=== PATIENT | female | born 1950 | race Caucasian/White ===

== ENCOUNTER 2017-01-29 19:56 | Observation (INO) | payer BC, MEDICARE ==
[~2017-01-29] VITALS: Ht 162.6 cm; Wt 67.9 kg
--- NOTE | ~2017-01-29 | DS ---
PATIENT'S NAME: GHAZAL CÁRDENAS [facility] AGE: 66 Y [address] ROOM: [address] [place], [place] [address] [place] [facility] [place] DATE: 01/29/2017 Discharge Summary DISCHARGE DATE: 02/01/2017 FAMILY PHYSICIAN: Physician, Unknown ATTENDING PHYSICIAN: Aliyah Dominguez [facility] COURSE: This is a 66-year-old female with a past medical history of diabetes type 2; history of seizures; hallucinations; she has a history of chronic pain syndrome with a pain pump, however, does not know what kind of medication they use for the pain pump; and she has a history of peripheral vascular disease, who is admitted for acute psychotic disorder in which the patient was actively hallucinating and was very aggressive towards her . Per her , since this has been ongoing for the past month or so, the patient was admitted and Psychiatry was consulted and Neurology was also consulted. From an internal medical standpoint, we have done our full workup. Her TSH and free T4 was within normal limits. Her CT head is also negative. We are unable to do an MRI because we do not know what pump she actually has. Urine culture and blood culture is negative. Chest x-ray showed some questionable infiltrate versus atelectasis, however, upon reviewing the chest x-ray myself, this appears to be more atelectasis. She has no symptoms of shortness of breath. She has no fever, no leukocytosis, and procal is negative. She has mild hypercarbia on ABG, but at that time the patient was very drowsy and she was able to be weaned off oxygen when she was awake. We also obtained ammonia level and that was 19. We did a urine drug screen and that was also negative. The only positive was opiate. At the time of discharge, the patient was hemodynamically stable. She was still somewhat forgetful. She is drowsy, but she wakes up. Per Neurology recommendations, the patient will be discharged on increased Lamictal. She will be upped from 100 mg b.i.d. to 150 mg at night and 100 mg in the morning. Psychiatry had recommended to start her on Zyprexa 2.5 mg b.i.d. I will give her a limited dosage just so that she can go back and prevent further psychosis with aggressive behavior episode, so that she can follow up with her PCP, her psychiatrist, and also her pain management physician. She needs to follow up with her psychiatrist, her pain management physician, and PCP JAMIL when she gets to [place]. She is to follow up with them on Thursday or Thursday for medication adjustment. DISCHARGE PHYSICAL EXAMINATION: VITAL SIGNS: She is afebrile, her heart rate is in the 60s, her respiratory rate is in the 16s, her blood pressure is at 120s/50s. She is saturating 96% on room air. GENERAL: She is awake and alert this morning. She is in no acute distress. LUNGS: Sounds are clear. No crackles, no wheezing present. HEART: Sounds are regular rate and rhythm. No rubs, no murmurs present. ABDOMEN: Nontender. No guarding. No rigidity. No organomegaly. Bowel PATIENT'S NAME: GHAZAL CÁRDENAS [facility] AGE: 66 Y [address] ROOM: [place] [address] [place]: [facility] [place] DATE: 01/29/2017 Discharge Summary DISCHARGE DATE: 02/01/2017 FAMILY PHYSICIAN: Physician, Unknown ATTENDING PHYSICIAN: Aliyah Dominguez sounds are normal. EXTREMITIES: No pedal edema grossly. NEUROLOGIC: She is neurologically grossly normal. PSYCHIATRIC NICHOLE: I am unable to determine. I feel like she is unable to make her own decisions. DISCHARGE MEDICATIONS: She will be discharged back on her home doses of medication. The only changes will be her Lamictal instead of 100 mg b.i.d., it will be 100 mg in the morning and 150 mg at night and also she will be added on Zyprexa 2.5 mg b.i.d. for 15 pills, so that she can follow up with the psychiatrist as soon as possible. MD SHANTE KWOK/rupali /[id number] d: 02/02/17 0343 t: 03/20/17 0919, DISCHARGE SUMMARY
--- NOTE | ~2017-01-29 | CON ---
PATIENT'S NAME: GHAZAL CÁRDENAS [facility] AGE: 66 Y [address] ROOM: [address] [place], [place] [address] LOCATION: [facility] [place] ADMIT DATE: 01/29/2017 Consultation DISCHARGE DATE: FAMILY PHYSICIAN: PHYSICIAN, UNKNOWN ATTENDING PHYSICIAN: Aliyah FERREIRA DATE OF CONSULTATION: 02/01/2017 TIME: 9:40 a.m. CHIEF COMPLAINT: Altered mental status. HISTORY OF PRESENT ILLNESS: This is a 66-year-old female who presents with a past medical history of diabetes mellitus type 2, CAD, and recent history of hallucinations who presents to our emergency room with confusion. The patient was here for a with her because of a in the family, and she appeared very confused. They went to a gas station, and the patient refused to get in the car and thought her was the [place]. She was confused and agitated. They did call EMS, and the patient was brought to our emergency department. She was placed on soft restraints for a CT of her head and given ketamine to accomplish the CT. The patient continued to hallucinate, but was no longer agitated. She still stated the Devil is telling her to do stuff. She did see the Devil in her hospital room also. She states she even saw the Devil before she came to [place] and [place]. The states, for the past 2 months or so, she has had a history of confusion, and she cannot remember events and sometimes mistakes someone for someone else. She has a history of severe depression and sees Psychiatry in [place]. It is unknown if she has been taking her medications faithfully. The patient denies wanting to harm herself or others. She is alert and oriented x3; however, she still has hallucinations. She denies hearing voices. She denies any headache, fever, chills, productive cough, chest pain, shortness of breath, abdominal pain, nausea, or vomiting. She denies any changes in medications recently. PAST MEDICAL HISTORY: 1. Diabetes mellitus, type 2. 2. CAD. 3. Seizure disorder. 4. Peripheral vascular disease. 5. History of colitis. 6. History of back pain with pain pump. They do not know what kind of medication the pain pump uses. PATIENT'S NAME: GHAZAL CÁRDENAS [facility] AGE: 66 Y [address] ROOM: [id number] [place], [place] [address] LOCATION: [facility] [place] ADMIT DATE: 01/29/2017 Consultation DISCHARGE DATE: FAMILY PHYSICIAN: PHYSICIAN, UNKNOWN ATTENDING PHYSICIAN: Aliyah FERREIRA PAST SURGICAL HISTORY: 1. Total knee replacement. 2. Total hip replacement. 3. Cholecystectomy. 4. Appendectomy. 5. Multiple back surgeries. 6. Pain pump placement. FAMILY HISTORY: Her father of coronary artery disease at age 54. Her mother had a history of diabetes, type 2. SOCIAL HISTORY: Remote smoking history, she stopped 4 years ago and denies any drinking. MEDICATIONS: On the chart and reviewed by me. Of course, we noted that the patient is taking Lamictal; however, we are unsure if this is for seizures or for mood control. The patient is also on Lyrica which may have an anti-seizure effect also, although it is scheduled p.r.n. REVIEW OF SYSTEMS: All systems have been reviewed are negative except for those mentioned in the HPI. PHYSICAL EXAMINATION: VITALS SIGNS: She is afebrile. Blood pressure is 138/72, heart rate of 84, respirations 16, and she is saturating 95% on room air. GENERAL APPEARANCE: The patient is sleepy, but does arouse. She appears in no acute distress. HEENT: Head is normocephalic and atraumatic. Eyes: Extraocular muscles are intact. Pupils are equal and reactive to light and accommodation. NECK: No nuchal rigidity noted. HEART: Regular rate and rhythm. No murmurs, rubs, or gallops. ABDOMEN: Soft, nontender, and nondistended. She does have a right-sided pain pump in place. NEUROLOGIC: She is alert and oriented x3. She is a very poor historian. When questioned about her issues about getting in the car with her , she stated her was a different person. The patient feels like she is at baseline; however, she is still having delusional thoughts. She is still communicating with the Devil. Her affect is somewhat flat. LABORATORY DATA: The drug screen was positive for opiates. Of note, the patient does take Percocet at home. TSH of 2.5. CRP is 0.99. Lactate of 2.7. Her CT of head PATIENT'S NAME: GHAZAL CÁRDENAS [facility] AGE: 66 Y [address] ROOM: [id number] [place] [address] LOCATION: [facility] [place] ADMIT DATE: 01/29/2017 Consultation DISCHARGE DATE: FAMILY PHYSICIAN: PHYSICIAN, UNKNOWN ATTENDING PHYSICIAN: Aliyah FERREIRA shows no acute processes. ASSESSMENT AND PLAN: Delirium. Unable to tell if this is related to her depression or not. Her behavior certainly could have been an unusual presentation of seizure also. For that matter, we will increase her evening Lamictal to 150 mg p.o. The best plan of care for this patient would be to get her back to her physicians who know her very complex medical background after she has been stabilized. There are many unknowns such as what is in her pain pump and has she had any changes in medications. Agree with Psychiatry's recommendation to start the Seroquel. We would like to thank you for the opportunity to participate in this patient's care. If you have any questions, please do not hesitate to notify us. LORENZA BEDOLLA APRN FOR JACQUI OLMEDO MD PP/humbertol /[id number] d: 02/01/17 1208 t: 02/03/17 1841, CONSULTATION REPORT
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
--- NOTE | ~2017-01-29 | HP ---
PATIENT'S NAME: GHAZAL CÁRDENAS [facility] AGE: 66 Y [address] ROOM: [address] [place], [place] [address] LOCATION: [facility] [place] ADMIT DATE: 01/29/2017 History & Physical DISCHARGE DATE: FAMILY PHYSICIAN: PHYSICIAN, UNKNOWN ATTENDING PHYSICIAN: Aliyah FERREIRA DATE OF SERVICE: CHIEF COMPLAINT: Altered mental status. HISTORY OF PRESENT ILLNESS: The patient is a 66-year-old female with past medical history of diabetes mellitus type 2, CAD, and recent history of seizure and hallucination, who presents here with acute confusion. The patient is originally from [facility]. The patient came to visit her mother because there was a in the family. The patient came with her , however, the patient was noted to be confused today. According to , they went to a gas station and the patient refused to get into the car and thought her was the rexl and was noted to be confused and agitated. The patient was brought into our emergency department for further investigation. The patient was initially noted to be agitated and confused. The patient was initially placed in with soft restraint and had a CT of head that was negative. The patient received ketamine for her CT head. The patient currently is still hallucinating, but, however no signs of agitation. The patient reports that she sees the devil and eugene is telling her to do stuff that she does not want to do. She currently denies seeing the devil in the room and last time she saw the devil was before she came in. She reports that she have seen the devil before even when she was in [place]. According to , he reports that for the past 2 months or so, the patient has these episodes of confusion and not able to remember events and sometimes taken for someone else. The patient has a history of severe depression and sees Psychiatry in [place]. He reports that she has not been taking her psychiatric for the past few months. also reports that she has been taking her medications lately. The patient currently denies of harming herself or others. She is alert and oriented x3. However, she still has hallucinations. She currently denies hearing voices. She denies any headache, fever, chills, productive cough, chest pain, shortness of breath, abdominal pain, nausea, vomiting. PAST MEDICAL HISTORY: 1. Diabetes mellitus, type 2. 2. CAD with no intervention. 3. Seizure disorder. 4. Peripheral vascular disease. PATIENT'S NAME: GHAZAL CÁRDENAS [facility] AGE: 66 Y [address] ROOM: [place] [address] LOCATION: [facility] [place] ADMIT DATE: 01/29/2017 History & Physical DISCHARGE DATE: FAMILY PHYSICIAN: PHYSICIAN, UNKNOWN ATTENDING PHYSICIAN: Aliyah FERREIRA 5. History of colitis. 6. History of back pain with pain pump. and the patient does not know what kind of medication that use for pain pump. PAST SURGICAL HISTORY: 1. Total knee replacement. 2. Total hip replacement. 3. Cholecystectomy. 4. Appendectomy. 5. Multiple back surgery. 6. Pain pump placement. FAMILY HISTORY: Father of coronary artery disease at age 54. Mother has history of diabetes mellitus type 2. SOCIAL HISTORY: History of smoking. She stopped four years ago and denies of drinking. MEDICATIONS: Currently being reconciled. REVIEW OF SYSTEMS: All systems have been reviewed and are negative except for what is mentioned in HPI. PHYSICAL EXAMINATION: VITAL SIGNS: Afebrile, blood pressure 143/79, heart rate of 86, respiratory rate 16, and saturating 96% on room air. GENERAL APPEARANCE: The patient on bed in no acute distress. HEAD: Normocephalic, atraumatic. EYES: Extraocular muscle intact. NECK: No meningismus sign. CHEST: Clear to auscultation bilaterally. HEART: Regular rate and rhythm. No murmurs, rubs, or gallops. MOUTH: Moist oral mucosa. ABDOMEN: Soft, nontender, and nondistended. There is a right side pain pump in place. EXTREMITIES: Venous stasis change. Bilateral dorsalis pedis artery pulse present. BREADING MACHINE TENDER: The patient is alert and oriented x3. Motor and sensory grossly intact. PSYCH: The patient is alert and awake. The patient still reports of having communication with the devil. Flat affect and disoriented thoughts. LABORATORY DATA: PATIENT'S NAME: GHAZAL CÁRDENAS [facility] AGE: 66 Y [address] ROOM: [place] [address] LOCATION: [facility] [place] ADMIT DATE: 01/29/2017 History & Physical DISCHARGE DATE: FAMILY PHYSICIAN: PHYSICIAN, UNKNOWN ATTENDING PHYSICIAN: Aliyah FERREIRA Blood glucose 200, BUN 24, creatinine 1.5, sodium 138, potassium of 3.6. CBC; white blood cells 14.7, hemoglobin 13.8, platelet of 221. Drug screen positive for opiates. The patient takes Percocet at home. Tylenol level undetected. Salicylates level undetected. CRP is 0.99. TSH of 2.5. Alcohol level undetected. CT head preliminary report, no acute changes. ASSESSMENT AND PLAN: 1. Acute psychotic disorder. Etiology most likely secondary to underlying depression and possible psychoaffective disorder as the patient has history of severe depression. According to , this symptom has been ongoing on for past month or so. Currently, the patient shows no signs of agitation. Agitation has been stabilized, but still continued to have hallucination and disorganized thoughts. We will start the patient on p.r.n. medication of Haldol as needed and to have Psychiatry consult in the morning. We will also workup secondary medical workup. We will check vitamin B12 and RPR. The patient's TSH is within normal limits in the emergency department. 2. Possible psychoaffective disorder. Please see problem #1. 3. Diabetes mellitus type 2. reports that she is on sliding scale. We will continue sliding scale while she is here. 4. Acute kidney injury. Etiology most likely secondary to medical noncompliance and elevated blood glucose. We will continue the patient on IV fluids and we will check CMS in the morning. Etiology most likely secondary to pre renal. 5. Peripheral vascular disease. Continue aspirin and Plavix. 6. History of coronary artery disease. No intervention done in the past. We will continue aspirin and Plavix. 7. Depression. Continue home medication of the duloxetine. 8. Seizure. Continue lamotrigine. 9. Hypertension. Continue home medication of clonidine, Lopressor, and amlodipine. We will hold hydrochlorothiazide due to acute kidney injury. Greater than 70 minutes was spent on the patient care. Greater than 50% of time was spent on direct patient care. A long discussion was made with the . We will admit the patient for acute psychosis. The patient to be seen by Psychiatry in the morning. We will have Haldol medication as needed. MD Gretel COX PATIENT'S NAME: GHAZAL CÁRDENAS [facility] AGE: 66 Y [address] ROOM: [place] [address] LOCATION: [facility] [place] ADMIT DATE: 01/29/2017 History & Physical DISCHARGE DATE: FAMILY PHYSICIAN: PHYSICIAN, UNKNOWN ATTENDING PHYSICIAN: Aliyah FERREIRA /[id number] D: T: [id number] HISTORY & PHYSICAL
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
[2017-01-29 20:19] LABS: BICARBONATE 29.1 mmol/L (18.0-23.0); LACTATE 2.7 mEq/L (0.50-1.60); PCO2 54 mmHg (35-45); PO2 41 mmHg (80-90)
[2017-01-29 20:20] LABS: BASOPHIL # 0.1 K/uL (0.0-0.2); BASOPHIL % 0.5 %; EOSINOPHIL # 0.4 K/uL (0.0-0.5); EOSINOPHIL % 2.4 %; HEMATOCRIT 42.1 % (33.0-46.0); HEMOGLOBIN 13.8 g/dL (10.0-15.0); IMMATURE GRANULOCYTE # 0.1 K/uL (0.0-0.3); IMMATURE GRANULOCYTE % 0.4 %; LYMPHOCYTE # 1.3 K/uL (0.8-4.0); MCH 28.1 pg (27.0-34.0); MCHC 32.8 gm/dL (32.0-36.5); MCV 85.7 fl (83.0-98.0); MONOCYTE # 1.6 K/uL (0.0-1.0); MONOCYTE % 10.7 %; MPV 12.4 fl (9.4-12.4); NEUTROPHIL # (ANC) 11.3 K/uL (1.8-7.8); NRBC % 0 /100WBC (0-0.00); PLATELET COUNT 221 K/uL (150-450); RBC 4.91 M/uL (3.50-5.50); RDW-CV 13.9 % (11.9-14.6); WBC 14.7 K/uL (4.0-11.0)
[2017-01-29 20:28] LABS: INR - (THERAPEUTIC) 0.94 (0.92-1.07); PROTIME 9.9 SECONDS (9.8-11.4); PTT 26 SECONDS (25-32)
[2017-01-29 20:43] LABS: ALBUMIN 4.1 gm/dL (3.5-5.0); ALK PHOS 120 IU/L (33-138); ALT 23 IU/L (12-78); ANION GAP 13.6 (10.0-19.0); AST 23 IU/L (10-40); BLOOD UREA NITROGEN 24 mg/dL (6-24); CALCIUM 9.3 mg/dL (8.5-10.5); CHLORIDE 102 mMol/L (96-110); CO2 26 mMol/L (22-32); CPK 145 IU/L (21-215); CREATININE 1.5 mg/dL (0.5-1.1); POTASSIUM 3.6 mMol/L (3.7-5.1); SODIUM 138 mMol/L (135-145); TOTAL BILIRUBIN 0.5 mg/dL (0.0-1.5); TOTAL PROTEIN 8.4 g/dL (6.0-8.4)
[2017-01-29 21:29] LABS: BILIRUBIN URINE NEGATIVE (NEGATIVE); BLOOD URINE NEGATIVE /UL (NEGATIVE); COLOR URINE YELLOW (YELLOW); GLUCOSE URINE NEGATIVE (NEGATIVE); KETONE URINE NEGATIVE (NEGATIVE); LEUKOCYTES URINE 25 /UL (NEGATIVE); NITRITE URINE NEGATIVE (NEGATIVE); PROTEIN URINE 30 mg/dL (NEGATIVE); SPEC GRAVITY URINE 1.015 (1.003-1.035); TURBIDITY URINE CLEAR (CLEAR); UROBILINOGEN URINE NORMAL (NORMAL)
[2017-01-29 21:36] LABS: BACTERIA URINE FEW (NEGATIVE); EPITHELIAL URINE 0-2 #/HPF (NEGATIVE); HYALINE CAST URINE 0-2 #/LPF (NEGATIVE); RBC URINE NEGATIVE #/HPF (NEGATIVE); RENAL EPITH URINE 0-2 #/HPF (NEGATIVE)
[2017-01-29 21:46] LABS: COCAINE NEGATIVE (NEGATIVE); OPIATES POSITIVE (NEGATIVE)
[2017-01-29 21:47] LABS: AMPHETAMINE NEGATIVE (NEGATIVE); BARBITURATE NEGATIVE (NEGATIVE)
[2017-01-30] MEDS ORDERED: CATAPRES0.2 MG PO (00:02)
[2017-01-30] MEDS ORDERED: TOLTERODINE TART4 MG PO (00:04)
[2017-01-30] MEDS ORDERED: LAMICTAL100 MG PO (00:05)
[2017-01-30] MEDS ORDERED: ATIVAN 1 MG1 MG PO (00:06)
[2017-01-30] MEDS ORDERED: DIOVAN160 MG PO (00:07)
[2017-01-30] MEDS ORDERED: MULTIPLE VITAM1 EAC2 PO (00:08)
[2017-01-30] MEDS ORDERED: ASPIRIN325 MG PO (00:09)
[2017-01-30] MEDS ORDERED: ZOCOR20 MG PO (00:16)
[2017-01-30] MEDS ORDERED: LOPRESSOR50 MG PO (00:17)
[2017-01-30] MEDS ORDERED: HYDRODIURIL25 MG PO (00:18)
[2017-01-30] MEDS ORDERED: PLAVIX75 MG PO (00:18)
[2017-01-30] MEDS ORDERED: ZANTAC150 MG PO (00:19)
[2017-01-30] MEDS ORDERED: LYRICA 100MG C100 MG PO (00:20)
[2017-01-30] MEDS ORDERED: NORVASC10 MG PO (00:21)
[2017-01-30] MEDS ORDERED: FEOSOL325 MG PO (00:22)
[2017-01-30] MEDS ORDERED: CYMBALTA60 MG PO (00:23)
[2017-01-30] MEDS ORDERED: DILAUDID 4MG4 MG PO (00:24)
[2017-01-30] MEDS ORDERED: IMPLANTED PAIN PUMP (01:04)
[2017-01-30] MEDS ORDERED: INSULIN (01:14)
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
--- NOTE | 2017-01-30 13:13 | NUR ---
Met with Grace Malcolm APRN and she states that patient is not open to talking to her. She states patient is oriented and knows that she is in [place] in the hospital, but there are other concerns with her mental state. Psych Consult has been ordered, but no one has been here yet to see patient. is not here yet so will follow up with the patient this afternoon. Phone call placed to [facility], but had to leave a message for them to call me back. Will wait to hear from [facility].
--- NOTE | 2017-01-30 15:10 | NUR ---
Patients nurse Laura called about a [facility] discount card. 1520 gave one to Laura.
[2017-01-30 15:24] LABS: BASOPHIL # 0.1 K/uL (0.0-0.2); BASOPHIL % 0.6 %; EOSINOPHIL # 0.3 K/uL (0.0-0.5); HEMATOCRIT 40.6 % (33.0-46.0); HEMOGLOBIN 13.3 g/dL (10.0-15.0); IMMATURE GRANULOCYTE % 0.2 %; LYMPHOCYTE # 1.6 K/uL (0.8-4.0); LYMPHOCYTE % 18.6 %; MCH 28.2 pg (27.0-34.0); MCHC 32.8 gm/dL (32.0-36.5); MCV 86.2 fl (83.0-98.0); MONOCYTE % 11.9 %; MPV 12.3 fl (9.4-12.4); NEUTROPHIL # (ANC) 5.5 K/uL (1.8-7.8); NEUTROPHIL % 64.7 %; NRBC % 0 /100WBC (0-0.00); PLATELET COUNT 179 K/uL (150-450); RBC 4.71 M/uL (3.50-5.50); RDW-CV 13.8 % (11.9-14.6); WBC 8.5 K/uL (4.0-11.0)
[2017-01-30 15:37] LABS: ANION GAP 9.9 (10.0-19.0); CALCIUM 9.2 mg/dL (8.5-10.5); POTASSIUM 3.9 mMol/L (3.7-5.1)
--- NOTE | 2017-01-30 18:45 | NUR ---
Changing level of consciousness. Oriented x3; passed [facility] this a.m. Late this afternoon, did not recognize her . Psych said monitor/tx for delirium. VSS, afebrile, on RA. LAC IV infusing w/o complication. Xlarge incontinent BM. Incontinent of urine x4 this afternoon; voided per toilet this a.m. Has implanted Morphine pump. Gave PRN Tylenol x1 the pt slept for 4.5hrs for pain 8.5/10. Requests pain meds.
--- NOTE | 2017-01-31 02:33 | NUR ---
Significant Event: Patient alert and oriented to person, place and self. From [place]. Fell on 01/27. 1 assist with walker and gait belt. Pneumatics on. Bed alarm at all times. Vitals stable and on room air. IV saline locked to L) AC. Up to bathroom about every hour. ACHS accucehcks. Telemetry on no calls. Several bruises and abrasions to skin. Aloe vesta to buttocks. Former smoker. Meds whole in applesauce. Follow up: Reorient as needed
[2017-01-31 15:11] LABS: BASOPHIL % 0.5 %; EOSINOPHIL # 0.2 K/uL (0.0-0.5); EOSINOPHIL % 3.1 %; HEMATOCRIT 41.3 % (33.0-46.0); HEMOGLOBIN 13.7 g/dL (10.0-15.0); IMMATURE GRANULOCYTE % 0.5 %; LYMPHOCYTE # 1.4 K/uL (0.8-4.0); LYMPHOCYTE % 17.7 %; MCH 28.1 pg (27.0-34.0); MCHC 33.2 gm/dL (32.0-36.5); MCV 84.6 fl (83.0-98.0); MONOCYTE # 1.1 K/uL (0.0-1.0); MONOCYTE % 13.5 %; MPV 12.3 fl (9.4-12.4); NEUTROPHIL % 64.7 %; NRBC % 0 /100WBC (0-0.00); PLATELET COUNT 184 K/uL (150-450); RBC 4.88 M/uL (3.50-5.50); RDW-CV 13.8 % (11.9-14.6); WBC 7.8 K/uL (4.0-11.0)
--- NOTE | 2017-01-31 15:28 | NUR ---
Significant event: Patient is alert and oriented x3. Is at times forgetful. VSS on room air. Did work with therapy today and ambulated in acosta. IV to left forearm, saline locked. Ativan given this morning, is only 1x daily. Can not have any tonight. Does have Haldol if needed. Did take meds whole, with no complications with no applesauce. Is on tele no calls. Has a morphine implanted pump. Trying to get records from [place], sent request today. Not able to do an MRI until we know if pump is compatible. Is ACHS with mild sliding scale. Gave 2 units for lunch dose at 1515. Psych to consult again tomarrow. Did refuse the ABG today. Otherwise has been cooperative with [facility].
[2017-01-31 15:30] LABS: ALBUMIN 3.7 gm/dL (3.5-5.0); CALCIUM 9.9 mg/dL (8.5-10.5); TOTAL BILIRUBIN 0.4 mg/dL (0.0-1.5); TOTAL PROTEIN 7.9 g/dL (6.0-8.4)
--- NOTE | 2017-02-01 04:44 | NUR ---
Significant Event: Multiple complaints of not getting all the meds she needs, constantly asks for ativan and pain medications. Drowsy most of the time. Wants to go home. Confused at times, but alert and orientated x 3. Tylenol 650 mg given last at 0350 with 1 mg of ativan. Follow up: Psych consult again in am. Order for ativan TID?
[2017-02-01] MEDS ORDERED: ZYPREXA2.5 MG PO (13:53)
[2017-02-01] MEDS ORDERED: LAMICTAL100 MG PO (13:56)
--- NOTE | 2017-02-01 15:00 | NUR ---
Dismissal Summary: Patient is alert and oriented x3. Forgetful at times. VSS. on room air. IV dc'd with no complications. Pt given tylenol at 1430. Education given to on preventing DVT's,(especially with long distance driving), and on zyprexa. PRescriptions also given, and explained to that he could go to [facility] and [facility] new prescriptions. Also gave copies to of hospital discharge instructions and explained to the to make follow up appts with the psychiatrist and pain specialist as soon as returning home. Verbalized understanding. Patient was given a shower, dressed and wheeled to main [place] doors by nurse and . COoperative with cares.
== END 2017-02-01 15:00 | disposition disaster alternative care site (69) ==
LOC: GMED 19:56 → GMSU 22:52
PROVIDERS: Emergency Medicine; Hospitalist; Nurse Practitioner Family; ADMIT Internal Medicine
DX: R41.0 Disorientation, unspecified (principal); I25.10 Atherosclerotic heart disease of native coronary artery without angina pectoris; E11.9 Type 2 diabetes mellitus without complications; G40.909 Epilepsy, unspecified, not intractable, without status epilepticus; I73.9 Peripheral vascular disease, unspecified; F32.9 Major depressive disorder, single episode, unspecified; N17.9 Acute kidney failure, unspecified; G89.4 Chronic pain syndrome; Z88.2 Allergy status to sulfonamides; Z87.891 Personal history of nicotine dependence; Z87.19 Personal history of other diseases of the digestive system; Z96.659 Presence of unspecified artificial knee joint; Z96.649 Presence of unspecified artificial hip joint; Z90.49 Acquired absence of other specified parts of digestive tract; Z79.82 Long term (current) use of aspirin; Z79.02 Long term (current) use of antithrombotics/antiplatelets; Z98.890 Other specified postprocedural states
CPT/HCPCS: A9270; G0378; G0480; G8978; G8979; G8980; G8987; G8988; G8989; J1630; J1644; J7030

== ENCOUNTER → 2017-01-29 | Outpatient (CLI) | payer BC, MEDICARE ==
[~2017-01-29] MED LIST: ASPIRIN325 MG PO; ATIVAN 1 MG1 MG PO; CATAPRES0.2 MG PO; CYMBALTA60 MG PO; DILAUDID 4MG4 MG PO; DIOVAN160 MG PO; FEOSOL325 MG PO; HYDRODIURIL25 MG PO; IMPLANTED PAIN PUMP; INSULIN; LAMICTAL100 MG PO; LOPRESSOR50 MG PO; LYRICA 100MG C100 MG PO; MULTIPLE VITAM1 EAC2 PO; NORVASC10 MG PO; PLAVIX75 MG PO; TOLTERODINE TART4 MG PO; ZANTAC150 MG PO; ZOCOR20 MG PO; ZYPREXA2.5 MG PO
== END | disposition disaster alternative care site (69) ==
LOC: GAMB 19:26
DX: R41.82 Altered mental status, unspecified (principal); F03.90 Unspecified dementia, unspecified severity, without behavioral disturbance, psychotic disturbance, mood disturbance, and anxiety; E11.9 Type 2 diabetes mellitus without complications; Z79.899 Other long term (current) drug therapy
CPT/HCPCS: A0425; A0429